=== PATIENT | male | born 1970 | race Two or more races ===

== ENCOUNTER → 2021-05-26 12:26 | Outpatient (CLI) | payer OTHER | END | disposition home or self-care (01) | LOC: LAB 12:26 | PROVIDERS: ATTEND Internal Medicine Geriatric Medicine | DX: Z20.818 Contact with and (suspected) exposure to other bacterial communicable diseases (principal) ==

== ENCOUNTER 2021-09-05 08:00 | Outpatient (CLI) | payer OTHER | END 2021-09-05 08:30 | disposition home or self-care (01) | LOC: PPH VACUNA 08:00 | PROVIDERS: ATTEND Emergency Medicine Pediatric Emergency Medicine | DX: Z23 Encounter for immunization (principal) ==

== ENCOUNTER 2025-05-07 09:34 | Outpatient (CLI) | payer OTHER | END 2025-05-07 09:35 | disposition home or self-care (01) | LOC: NUCLEAR 09:34 | PROVIDERS: ATTEND Internal Medicine Geriatric Medicine | DX: I11.9 Hypertensive heart disease without heart failure (principal) ==

== ENCOUNTER → 2025-05-07 12:13 | Outpatient (CLI) | payer OTHER ==
[2025-05-07 12:49] LABS: BASO % 0.4 % (0.1-1.2); EOS # 0.12 (0.04-0.54); EOS % 1.6 % (0.7-7.0); HEMATOCRIT 40.9 % (40.1-51.0); HEMOGLOBIN 13.8 g/dL (13.7-17.5); LYMPH # 3.04 (1.18-3.74); LYMPH % 39.7 % (19.3-53.1); MEAN CORPUSCULAR HEMOGLOBIN 27.9 pg (25.6-32.2); MONO % 9.1 % (4.7-12.5); NEUT # 3.75 (1.56-6.13); NEUT % 48.9 % (34.0-71.1); PLATELET COUNT 342 K/uL (163-369); RED BLOOD COUNT 4.94 M/uL (4.63-6.08); RED CELL DISTRIBUTION WIDTH 12.3 % (11.6-14.4); URINE APPEARANCE Clear; URINE BILIRRUBIN Negative (NEGATIVE); URINE BLOOD Negative; URINE COLOR Yellow; URINE GLUCOSE Negative (NEGATIVE); URINE LEUKOCYTE Negative; URINE NITRATE Negative; URINE PROTEIN Negative (NEGATIVE); URINE UROBILINOGEN 0.2 E.U./dl
[2025-05-07 12:55] LABS: ERYTHROCYTE SEDIMENTATION RATE 7 mm/hr (0-20)
[2025-05-07 13:14] LABS: URINE BACTERIA 13.4 uL (0.0-1933); URINE EPITHELIAL CELLS 2.1 uL (0.0-38.8); URINE KETONE Negative (NEGATIVE)
[2025-05-07 13:33] LABS: ALBUMIN 4.4 gm/dL (3.4-5.0); ALKALINE PHOSPHATASE 67 U/L (50-136); ALT/SGPT 23 U/L (12-78); ANION GAP 10 (10.0-20.0); AST/SGOT 18 U/L (15-37); BILIRUBIN TOTAL 0.78 mg/dL (0.3-1.2); BLOOD UREA NITROGEN 13 mg/dL (7-18); BUN CREA RATIO 16 (7.0-25.0); CALCIUM 9.3 mg/dL (8.5-10.1); CARBON DIOXIDE 26 mEq/L (21-32); CHLORIDE 109 mmol/L (98-107); CHOLESTEROL 230 mg/dL (0-200); GFR 100.74; GLOBULINA 3.4 G/DL (2.4-3.5); GLUCOSE FASTING 88 mg/dL (65-100); HDL 57 mg/dl (40-60); LDL 149 mg/dl (0-130); OSMOLALITY SERUM 281 MOSM/KG (275-295); POTASSIUM 3.87 mEq/L (3.5-5.1); SODIUM 141 mmol/L (136-145); TOTAL PROTEIN 7.8 gm/dL (6.4-8.2); TRIGLYCERIDES 118 mg/dL (0-150); TSH 0.579 uIU/mL (0.358-3.74); VLDL 23 (0-39)
[2025-05-07 13:36] LABS: C-REACTIVE PROTEIN < 0.29 MG/DL (0.00-0.29)
[2025-05-07 14:44] LABS: VITAMIN D3 25 HYDROXY 32.44 ng/ml (30-120)
[2025-05-11 09:12] LABS: HOMOCYSTEINE 14.3 umol/L (0.0-14.5)
== END | disposition home or self-care (01) ==
LOC: LAB 12:13
PROVIDERS: ATTEND Internal Medicine Geriatric Medicine
DX: Z12.5 Encounter for screening for malignant neoplasm of prostate (principal); M32.9 Systemic lupus erythematosus, unspecified; M06.9 Rheumatoid arthritis, unspecified; I11.9 Hypertensive heart disease without heart failure; E11.9 Type 2 diabetes mellitus without complications; E78.3 Hyperchylomicronemia; E03.9 Hypothyroidism, unspecified; R07.9 Chest pain, unspecified; D68.59 Other primary thrombophilia; E53.8 Deficiency of other specified B group vitamins

== ENCOUNTER 2025-05-11 08:11 | Outpatient (CLI) | payer OTHER | END 2025-05-11 08:12 | disposition home or self-care (01) | LOC: NUCLEAR 08:11 | PROVIDERS: ATTEND Internal Medicine Geriatric Medicine | DX: I77.9 Disorder of arteries and arterioles, unspecified (principal) ==

== ENCOUNTER 2025-05-21 06:56 | Outpatient (CLI) | payer OTHER | END 2025-05-21 07:05 | disposition home or self-care (01) | LOC: TOM 06:56 | PROVIDERS: ATTEND Internal Medicine | DX: R55 Syncope and collapse (principal); I77.819 Aortic ectasia, unspecified site ==